=== PATIENT | female | born 1970 | race Caucasian/White ===

== ENCOUNTER 2021-10-25 23:55 | Emergency (ER) | payer MEDICARE, MEDICAID ==
[2021-10-26 00:25] LABS: #Basophils 0.1 10x3/uL (0.0-0.2); #Eosinphils 0.3 10x3/uL (0.0-0.5); #Monocytes 0.8 10x3/uL (0.0-1.1); #Neutrophils 7.7 10x3/uL (1.5-8.4); %Basophils 0.8 % (0.0-2.0); %Eosinophils 2.8 % (0.0-6.0); %Lymphocytes 18.9 % (18.0-47.0); %Monocytes 7.5 % (0.0-10.0); %Neutrophils 69.5 % (40.0-75.0); Mean Corpuscular HGB CONC 29.4 g/dL (32.0-36.0); Mean Corpuscular Hemoglobin 27.4 pg (27.0-33.0); Mean Corpuscular Volume 93.1 fl (81.6-98.3); Mean Platelet Volume 11.9 fl (7.4-10.4); Platelet Count 192 10x3/uL (150-450); RBC Distribution Width 15.8 % (11.5-14.5); Red Blood Cell (RBC) Count 4.75 10x6/uL (3.90-5.03); White Blood Cell (WBC) Count 11.1 10x3/uL (3.5-10.5)
[2021-10-26 00:33] LABS: ALT (SGPT) 38 U/L (8-55); AST (SGOT) 26 U/L (5-34); Albumin 3.4 g/dL (3.5-5.0); Alkaline Phosphatase 108 U/L (40-110); Anion Gap 13 mmol/L (10-20); BUN (Urea Nitrogen) 14 mg/dL (7.0-18.7); Bilirubin, Total 0.4 mg/dL (0.2-1.2); CK (CPK) 27 U/L (29-168); Calc. Creatinine Clearance 0 mL/min (70-130); Calcium 9.3 mg/dL (7.8-10.44); Carbon Dioxide 25 mmol/L (22-29); Chloride 106 mmol/L (98-107); Estimated GFR 85; Globulin 4.6 g/dL (2.4-3.5); Glucose 157 mg/dL (70-105); Sodium 140 mmol/L (136-145)
== END 2021-10-26 02:44 | disposition home or self-care (01) ==
LOC: CSHERS 23:55
DX: J81.1 Chronic pulmonary edema (principal); I11.0 Hypertensive heart disease with heart failure; I50.9 Heart failure, unspecified; Z87.891 Personal history of nicotine dependence
CPT/HCPCS: 71045; 80053; 82550; 83880; 84484; 85025; 93005

== ENCOUNTER 2022-04-08 14:22 | Emergency (ER) | payer MEDICARE, OTHER ==
[2022-04-08 15:51] LABS: ALT (SGPT) 20 U/L (8-55); AST (SGOT) 20 U/L (5-34); Albumin 3.6 g/dL (3.5-5.0); Alkaline Phosphatase 89 U/L (40-110); Anion Gap 12 mmol/L (10-20); BUN (Urea Nitrogen) 16 mg/dL (7.0-18.7); Bilirubin, Total 0.3 mg/dL (0.2-1.2); Calc. Creatinine Clearance 0 mL/min (70-130); Calcium 9.3 mg/dL (7.8-10.44); Carbon Dioxide 27 mmol/L (22-29); Chloride 104 mmol/L (98-107); Estimated GFR 83; Glucose 105 mg/dL (70-105); Potassium 3.9 mmol/L (3.5-5.1); Protein, Total 8.6 g/dL (6.0-8.3); Sodium 139 mmol/L (136-145)
[2022-04-08 17:17] LABS: #Basophils 0.1 10x3/uL (0.0-0.2); #Eosinphils 0.5 10x3/uL (0.0-0.5); #Monocytes 0.5 10x3/uL (0.0-1.1); #Neutrophils 3.9 10x3/uL (1.5-8.4); %Eosinophils 6.9 % (0.0-6.0); %Lymphocytes 26.8 % (18.0-47.0); %Monocytes 7.9 % (0.0-10.0); Hemoglobin 13.7 g/dL (12.0-15.5); Mean Corpuscular HGB CONC 30.6 g/dL (32.0-36.0); Mean Corpuscular Volume 91.2 fl (81.6-98.3); Mean Platelet Volume 12.5 fl (7.4-10.4); Platelet Count 201 10x3/uL (150-450); RBC Distribution Width 15.7 % (11.5-14.5); White Blood Cell (WBC) Count 6.8 10x3/uL (3.5-10.5)
[2022-04-08 17:36] LABS: SARS-CoV-2 NAA Rapid Test Not Detected (NotDetected)
== END 2022-04-08 20:00 | disposition home or self-care (01) ==
LOC: CSHERS 14:22
DX: J18.9 Pneumonia, unspecified organism (principal); Z20.822 Contact with and (suspected) exposure to COVID-19; I11.0 Hypertensive heart disease with heart failure; I50.9 Heart failure, unspecified; Z79.899 Other long term (current) drug therapy; Z87.891 Personal history of nicotine dependence; Z79.82 Long term (current) use of aspirin
CPT/HCPCS: 0240U; 71045; 80053; 83880; 84484; 85025; 93005; 36415

== ENCOUNTER 2022-10-26 17:44 | Emergency (ER) | payer MEDICARE, OTHER ==
[2022-10-26] MEDS ORDERED: cefTRIAXone (ROCEPHIN) 2 GM VIAL ONE (18:58)
[2022-10-26 19:30] LABS: ALT (SGPT) 13 U/L (8-55); AST (SGOT) 19 U/L (5-34); Albumin 3.5 g/dL (3.5-5.0); Alkaline Phosphatase 93 U/L (40-110); Anion Gap 16 mmol/L (10-20); BUN (Urea Nitrogen) 13 mg/dL (9.8-20.1); Bilirubin, Total 0.4 mg/dL (0.2-1.2); Calc. Creatinine Clearance 0 mL/min (70-130); Calcium 9.1 mg/dL (7.8-10.44); Carbon Dioxide 25 mmol/L (22-29); Chloride 101 mmol/L (98-107); Estimated GFR 73; Glucose 83 mg/dL (70-105); Potassium 3.9 mmol/L (3.5-5.1); Protein, Total 9.5 g/dL (6.0-8.3); Sodium 138 mmol/L (136-145)
[2022-10-26 19:38] LABS: #Basophils 0.1 10x3/uL (0.0-0.2); #Eosinphils 1.7 10x3/uL (0.0-0.5); #Monocytes 1.1 10x3/uL (0.0-1.1); #Neutrophils 7.5 10x3/uL (1.5-8.4); %Basophils 0.8 % (0.0-2.0); %Monocytes 8.4 % (0.0-10.0); %Neutrophils 59.5 % (40.0-75.0); Hematocrit 46.8 % (34.9-44.5); Hemoglobin 14.3 g/dL (12.0-15.5); Mean Corpuscular HGB CONC 30.6 g/dL (32.0-36.0); Mean Corpuscular Hemoglobin 27.6 pg (27.0-33.0); Mean Corpuscular Volume 90.2 fl (81.6-98.3); Mean Platelet Volume 11.1 fl (7.4-10.4); Platelet Count 291 10x3/uL (150-450); RBC Distribution Width 14.5 % (11.5-14.5); Red Blood Cell (RBC) Count 5.19 10x6/uL (3.90-5.03); White Blood Cell (WBC) Count 12.7 10x3/uL (3.5-10.5)
[2022-10-26 20:43] LABS: Bilirubin Neg (Negative); Blood, Urine 25 (Negative); Clarity Clear (Clear); Glucose, Urine (Dipstick) Normal (Negative); Ketone, Urine Negative (Negative); Leukocyte Negative (Negative); Nitrite Negative (Negative); Protein, Urine (Dipstick) Negative (Neg-Trace); Specific Gravity, Urine 1.015 (1.005-1.030)
[2022-10-26 20:56] LABS: Bacteria/HPF None Seen HPF (None Seen); CAUTI Indications for Culture Dysuria,urgency,freq; RBC/HPF 0-3 HPF (0-3); Squamous Epithelial None Seen HPF (0-3); WBC/HPF None Seen HPF (0-3)
[2022-10-26 20:57] LABS: Urine Culture Reflex No No
[2022-10-26] MEDS ORDERED: Morphine 4 MG/ML VIAL ONE (22:10)
== END 2022-10-26 22:57 | disposition short-term general hospital (02) ==
LOC: CSHERS 17:44
DX: L89.156 Pressure-induced deep tissue damage of sacral region (principal); I11.0 Hypertensive heart disease with heart failure; I50.9 Heart failure, unspecified; Z87.891 Personal history of nicotine dependence
CPT/HCPCS: 36415; 80053; 81001; 83605; 85025; 87040; 87077; 87149; J0696; J2270

== ENCOUNTER 2023-01-24 16:00 | Inpatient (IN) | payer MEDICARE, MEDICAID ==
[2023-01-24] MEDS ORDERED: HYDROmorphone 0.5 MG/0.5 ML SYRINGE ONE (18:34)
[2023-01-24 18:42] LABS: #Basophils 0.2 10x3/uL (0.0-0.2); #Eosinphils 4.2 10x3/uL (0.0-0.5); #Neutrophils 8.2 10x3/uL (1.5-8.4); %Basophils 1.2 % (0.0-2.0); %Lymphocytes 16.2 % (18.0-47.0); %Monocytes 5.9 % (0.0-10.0); %Neutrophils 50.3 % (40.0-75.0); Hematocrit 42.6 % (34.9-44.5); Hemoglobin 13.1 g/dL (12.0-15.5); Mean Corpuscular HGB CONC 30.8 g/dL (32.0-36.0); Mean Corpuscular Hemoglobin 27.5 pg (27.0-33.0); Mean Corpuscular Volume 89.5 fl (81.6-98.3); Platelet Count 303 10x3/uL (150-450); RBC Distribution Width 14.6 % (11.5-14.5); Red Blood Cell (RBC) Count 4.76 10x6/uL (3.90-5.03); White Blood Cell (WBC) Count 16.2 10x3/uL (3.5-10.5)
[2023-01-24 18:51] LABS: ALT (SGPT) 16 U/L (8-55); AST (SGOT) 23 U/L (5-34); Albumin 3.4 g/dL (3.5-5.0); Alkaline Phosphatase 104 U/L (40-110); Anion Gap 13 mmol/L (10-20); BUN (Urea Nitrogen) 18 mg/dL (9.8-20.1); Bilirubin, Total 0.2 mg/dL (0.2-1.2); Calc. Creatinine Clearance 0 mL/min (70-130); Calcium 9.8 mg/dL (7.8-10.44); Carbon Dioxide 26 mmol/L (22-29); Chloride 105 mmol/L (98-107); Estimated GFR 83; Globulin 5.6 g/dL (2.4-3.5); Glucose 103 mg/dL (70-105); Potassium 3.9 mmol/L (3.5-5.1); Sodium 140 mmol/L (136-145)
[2023-01-24] MEDS ORDERED: Vancomycin 1 GM VIAL ONE (19:09)
[2023-01-24] MEDS ORDERED: metroNIDAZOLE 500 MG/100 ML BAG ONE (19:10)
[2023-01-24] MEDS ORDERED: Piperacillin/Tazobactam 4.5 GM VIAL ONE (19:18)
[2023-01-24 19:25] LABS: Large Platelets SLIGHT (None Seen); Platelet Adequacy Comment Appears Adequate; RBC Morph Comment Within Normal Limits
[2023-01-24] MEDS ORDERED: VANCOMYCIN 2 GRAM/400 ML BAG 2 GM in Premix 1 BAG IVPB SCH (20:00)
[2023-01-24] MEDS ORDERED: Calcium Carbonate 500 MG ChewTAB PO PRN (21:17)
[2023-01-24] MEDS ORDERED: HYDROcodone/Acetaminophen 5/325 mg Tablet PO PRN (21:17)
[2023-01-24] MEDS ORDERED: Ondansetron PF 4 MG/2 ML Vial IVP PRN (21:17)
[2023-01-24] MEDS ORDERED: Acetaminophen 325 MG TAB PO PRN (21:17)
[2023-01-24] MEDS ORDERED: Senokot S 8.6-50 MG TAB PO PRN (21:17)
[2023-01-24] MEDS ORDERED: Nystatin Powder 15 GM BOT TOP PRN (21:23)
[2023-01-24] MEDS ORDERED: Docusate 100 MG CAP PO PRN (21:23)
[2023-01-24] MEDS ORDERED: clonazePAM 0.5 MG TAB PO PRN (21:23)
[2023-01-24 22:21] VITALS: BMI 62.7
[2023-01-24] MEDS ORDERED: Morphine 2 MG/ML VIAL SLOW IVP PRN (22:27)
[2023-01-24] MEDS ORDERED: Lactated Ringer's 1,000 ML IV SCH (23:00)
[2023-01-25] MEDS: Morphine 4 MG/ML VIAL SLOW IVP PRN ×4 (01:39→18:44)
[2023-01-25] MEDS: metroNIDAZOLE 500 MG in Premix 1 BAG IVPB SCH ×2 (04:17→14:13)
[2023-01-25 04:39] LABS: Bilirubin Neg (Negative); Blood, Urine 25 (Negative); Clarity Clear (Clear); Glucose, Urine (Dipstick) Normal (Negative); Ketone, Urine 5 mg/dL (Negative); Leukocyte 25 (Negative); Nitrite Negative (Negative); Protein, Urine (Dipstick) 30 mg/dl (Neg-Trace)
[2023-01-25 04:48] LABS: Bacteria/HPF Rare-Few HPF (None Seen); RBC/HPF 0-3 HPF (0-3); Squamous Epithelial 0-3 HPF (0-3); WBC/HPF 0-3 HPF (0-3)
[2023-01-25 04:49] LABS: Calcium Oxalate Crystals Rare HPF (None Seen)
[2023-01-25] MEDS: Levothyroxine Sodium 50 MCG TAB PO SCH (05:42)
[2023-01-25 05:59] LABS: Hematocrit 43.6 % (34.9-44.5); Hemoglobin 12.9 g/dL (12.0-15.5); Mean Corpuscular HGB CONC 29.6 g/dL (32.0-36.0); Mean Corpuscular Hemoglobin 27.1 pg (27.0-33.0); Mean Corpuscular Volume 91.6 fl (81.6-98.3); Mean Platelet Volume 11.5 fl (7.4-10.4); Platelet Count 279 10x3/uL (150-450); RBC Distribution Width 14.7 % (11.5-14.5); Red Blood Cell (RBC) Count 4.76 10x6/uL (3.90-5.03); White Blood Cell (WBC) Count 14.8 10x3/uL (3.5-10.5)
[2023-01-25 06:52] LABS: Eosinophils 18 % (0-10); Lymphocytes 17 % (21-51); Monocytes 5 % (0-10)
[2023-01-25 06:53] LABS: MDiff Complete? YES; Neutrophil 60 % (42-75); RBC Morph Comment Within Normal Limits
[2023-01-25 06:54] LABS: Platelet Adequacy Comment Appears Adequate
[2023-01-25 07:43] LABS: Anion Gap 16 mmol/L (10-20); BUN (Urea Nitrogen) 18 mg/dL (9.8-20.1); Calc. Creatinine Clearance 252 mL/min (70-130); Calcium 9.8 mg/dL (7.8-10.44); Carbon Dioxide 22 mmol/L (22-29); Chloride 104 mmol/L (98-107); Estimated GFR 83; Glucose 98 mg/dL (70-105); Potassium 4.2 mmol/L (3.5-5.1); Sodium 138 mmol/L (136-145)
[2023-01-25] MEDS: Cefepime 2 GM in Sodium Chloride 0.9% 100 ML IVPB SCH (09:25)
[2023-01-25] MEDS: FLUoxetine HCl 20 MG CAP PO SCH (10:28)
[2023-01-25] MEDS: Aspirin 81 mg Enteric Coated Tablet PO SCH (10:29)
[2023-01-25] MEDS: Furosemide 20 MG TAB PO SCH (10:29)
[2023-01-25] MEDS: BuPROPion 100 MG SR.TAB PO SCH (10:29)
[2023-01-25] MEDS: Famotidine 20 MG TAB PO SCH ×2 (10:29→22:39)
[2023-01-25] MEDS: Polyethylene Glycol 3350 17 GM Packet PO SCH (10:30)
[2023-01-25] MEDS: Multivit, Therapeutic 1 TAB PO SCH (10:31)
[2023-01-25] MEDS: Divalproex Sodium 250 MG (DR) TAB PO SCH ×3 (10:33→22:40)
[2023-01-25] MEDS: Aripiprazole 10 MG TAB PO SCH (10:34)
[2023-01-25] MEDS: Topiramate 25 MG TAB PO SCH ×2 (10:35→22:40)
[2023-01-25] MEDS: VANCOMYCIN 1.5 GM, Admixture Fee 1 EACH in Sodium Chloride 0.9% 500 ML IVPB SCH (10:36)
[2023-01-25 12:44] LABS: Hemoglobin A1c 5.3 % (4.0-6.0)
[2023-01-25] MEDS: Melatonin 3 MG TAB PO SCH (22:39)
[2023-01-25] MEDS: Potassium Chloride 8 MEQ TAB PO SCH (22:40)
[2023-01-26] MEDS: Morphine 4 MG/ML VIAL SLOW IVP PRN ×4 (00:19→23:12)
[2023-01-26] MEDS: VANCOMYCIN 1.5 GM, Admixture Fee 1 EACH in Sodium Chloride 0.9% 500 ML IVPB SCH ×3 (00:37→13:13)
[2023-01-26] MEDS: Cefepime 2 GM in Sodium Chloride 0.9% 100 ML IVPB SCH ×3 (00:46→14:21)
[2023-01-26] MEDS: metroNIDAZOLE 500 MG in Premix 1 BAG IVPB SCH ×4 (00:46→17:50)
[2023-01-26] MEDS: Levothyroxine Sodium 50 MCG TAB PO SCH (05:52)
[2023-01-26] MEDS: Polyethylene Glycol 3350 17 GM Packet PO SCH (08:29)
[2023-01-26] MEDS: Aspirin 81 mg Enteric Coated Tablet PO SCH (08:34)
[2023-01-26] MEDS: Multivit, Therapeutic 1 TAB PO SCH (08:35)
[2023-01-26] MEDS: FLUoxetine HCl 20 MG CAP PO SCH (08:35)
[2023-01-26] MEDS: BuPROPion 100 MG SR.TAB PO SCH (08:35)
[2023-01-26] MEDS: Famotidine 20 MG TAB PO SCH ×2 (08:35→21:46)
[2023-01-26] MEDS: Furosemide 20 MG TAB PO SCH (08:35)
[2023-01-26] MEDS: Aripiprazole 10 MG TAB PO SCH (08:36)
[2023-01-26] MEDS: Divalproex Sodium 250 MG (DR) TAB PO SCH ×3 (08:36→21:48)
[2023-01-26] MEDS: Topiramate 25 MG TAB PO SCH ×2 (08:37→21:48)
[2023-01-26] MEDS: Potassium Chloride 8 MEQ TAB PO SCH ×2 (08:37→21:47)
[2023-01-26] MEDS: Melatonin 3 MG TAB PO SCH (21:46)
[2023-01-27 00:24] LABS: Vancomycin, Trough 23.4 ug/mL
[2023-01-27] MEDS: VANCOMYCIN 1.5 GM, Admixture Fee 1 EACH in Sodium Chloride 0.9% 500 ML IVPB SCH (00:33)
[2023-01-27] MEDS: Cefepime 2 GM in Sodium Chloride 0.9% 100 ML IVPB SCH ×2 (01:49→18:52)
[2023-01-27] MEDS: metroNIDAZOLE 500 MG in Premix 1 BAG IVPB SCH ×2 (02:40→08:55)
[2023-01-27] MEDS: Levothyroxine Sodium 50 MCG TAB PO SCH (05:10)
[2023-01-27] MEDS: BuPROPion 100 MG SR.TAB PO SCH (08:43)
[2023-01-27] MEDS: Multivit, Therapeutic 1 TAB PO SCH (08:43)
[2023-01-27] MEDS: Divalproex Sodium 250 MG (DR) TAB PO SCH ×3 (08:43→21:21)
[2023-01-27] MEDS: Polyethylene Glycol 3350 17 GM Packet PO SCH (08:43)
[2023-01-27] MEDS: Aripiprazole 10 MG TAB PO SCH (08:44)
[2023-01-27] MEDS: Aspirin 81 mg Enteric Coated Tablet PO SCH (08:44)
[2023-01-27] MEDS: Famotidine 20 MG TAB PO SCH (08:45)
[2023-01-27] MEDS: Furosemide 20 MG TAB PO SCH (08:45)
[2023-01-27] MEDS: FLUoxetine HCl 20 MG CAP PO SCH (08:45)
[2023-01-27] MEDS: Topiramate 25 MG TAB PO SCH ×2 (08:46→21:22)
[2023-01-27] MEDS: Potassium Chloride 8 MEQ TAB PO SCH ×2 (08:46→21:21)
[2023-01-27] MEDS ORDERED: HYDROcodone/Acetaminophen 5/325 mg Tablet PO PRN (12:32)
[2023-01-27] MEDS ORDERED: Morphine 2 MG/ML VIAL SLOW IVP PRN (12:34)
[2023-01-27] MEDS ORDERED: Morphine 4 MG/ML VIAL SLOW IVP PRN (12:34)
[2023-01-27] MEDS ORDERED: Polyethylene Glycol 3350 17 GM Packet PO PRN (12:37)
[2023-01-27] MEDS ORDERED: VANCOMYCIN 1.5 GM, Admixture Fee 1 EACH in Sodium Chloride 0.9% 500 ML IVPB SCH (18:00)
[2023-01-27] MEDS: Amoxicillin/Potassium Clav 875 MG TAB PO SCH (21:21)
[2023-01-27] MEDS: Melatonin 3 MG TAB PO SCH (21:21)
[2023-01-28] MEDS: LevoFLOXacin 750 MG TAB PO SCH (05:44)
[2023-01-28] MEDS: Levothyroxine Sodium 50 MCG TAB PO SCH (05:44)
[2023-01-28 08:41] LABS: Hematocrit 40.9 % (34.9-44.5); Hemoglobin 12.4 g/dL (12.0-15.5); MDiff Complete? YES; Mean Corpuscular HGB CONC 30.3 g/dL (32.0-36.0); Mean Corpuscular Hemoglobin 27.4 pg (27.0-33.0); Mean Corpuscular Volume 90.3 fl (81.6-98.3); Platelet Count 223 10x3/uL (150-450); RBC Distribution Width 14.5 % (11.5-14.5); Red Blood Cell (RBC) Count 4.53 10x6/uL (3.90-5.03); White Blood Cell (WBC) Count 11.7 10x3/uL (3.5-10.5)
[2023-01-28] MEDS: Amoxicillin/Potassium Clav 875 MG TAB PO SCH ×2 (08:45→21:40)
[2023-01-28] MEDS: Furosemide 20 MG TAB PO SCH (08:46)
[2023-01-28] MEDS: Pioglitazone HCl 15 MG TAB PO SCH (08:46)
[2023-01-28] MEDS: Aspirin 81 mg Enteric Coated Tablet PO SCH (08:46)
[2023-01-28] MEDS: Multivit, Therapeutic 1 TAB PO SCH (08:46)
[2023-01-28] MEDS: BuPROPion 100 MG SR.TAB PO SCH (08:46)
[2023-01-28] MEDS: FLUoxetine HCl 20 MG CAP PO SCH (08:46)
[2023-01-28] MEDS: Topiramate 25 MG TAB PO SCH ×2 (08:47→21:41)
[2023-01-28] MEDS: Polyethylene Glycol 3350 17 GM Packet PO SCH (08:47)
[2023-01-28] MEDS: Divalproex Sodium 250 MG (DR) TAB PO SCH ×3 (08:47→21:40)
[2023-01-28] MEDS: Aripiprazole 10 MG TAB PO SCH (08:47)
[2023-01-28] MEDS: Potassium Chloride 8 MEQ TAB PO SCH ×2 (08:47→21:40)
[2023-01-28 09:17] LABS: Eosinophils 30 % (0-10); Lymphocytes 26 % (21-51); Monocytes 3 % (0-10); Neutrophil 40 % (42-75)
[2023-01-28 09:22] LABS: Platelet Adequacy Comment Appears Adequate; Stomatocytes SLIGHT = 2-5 cells (100X) (0-1/hpf)
[2023-01-28 09:58] LABS: Anion Gap 11 mmol/L (10-20); BUN (Urea Nitrogen) 8 mg/dL (9.8-20.1); Calc. Creatinine Clearance 311 mL/min (70-130); Calcium 9.2 mg/dL (7.8-10.44); Carbon Dioxide 25 mmol/L (22-29); Chloride 104 mmol/L (98-107); Estimated GFR 105; Glucose 86 mg/dL (70-105); Potassium 3.3 mmol/L (3.5-5.1); Sodium 137 mmol/L (136-145)
[2023-01-28] MEDS ORDERED: Naloxone HCl 0.4 mg/ml Vial IV PRN (10:04)
[2023-01-28] MEDS: Ketorolac Tromethamine 30 MG/ML VIAL IVP SCH ×2 (11:37→18:20)
[2023-01-28] MEDS ORDERED: Lidocaine 1% w/Epinephrine 1:100K 20 ML VIAL FS SCH (12:00)
[2023-01-28] MEDS: traMADol HCl 50 MG TAB PO PRN (15:57)
[2023-01-28] MEDS: Melatonin 3 MG TAB PO SCH (21:39)
[2023-01-29] MEDS: Ketorolac Tromethamine 30 MG/ML VIAL IVP SCH ×4 (00:24→18:07)
[2023-01-29 05:23] LABS: Anion Gap 11 mmol/L (10-20); BUN (Urea Nitrogen) 8 mg/dL (9.8-20.1); Calc. Creatinine Clearance 306 mL/min (70-130); Calcium 9.1 mg/dL (7.8-10.44); Carbon Dioxide 27 mmol/L (22-29); Chloride 103 mmol/L (98-107); Estimated GFR 105; Glucose 103 mg/dL (70-105); Hematocrit 38.7 % (34.9-44.5); Hemoglobin 11.6 g/dL (12.0-15.5); Mean Corpuscular Hemoglobin 26.4 pg (27.0-33.0); Mean Corpuscular Volume 88.2 fl (81.6-98.3); Mean Platelet Volume 11.9 fl (7.4-10.4); Platelet Count 227 10x3/uL (150-450); Potassium 3.4 mmol/L (3.5-5.1); RBC Distribution Width 14.6 % (11.5-14.5); Red Blood Cell (RBC) Count 4.39 10x6/uL (3.90-5.03); Sodium 138 mmol/L (136-145); White Blood Cell (WBC) Count 11.1 10x3/uL (3.5-10.5)
[2023-01-29 05:27] LABS: MDiff Complete? YES
[2023-01-29] MEDS: LevoFLOXacin 750 MG TAB PO SCH (05:29)
[2023-01-29] MEDS: Levothyroxine Sodium 50 MCG TAB PO SCH (05:29)
[2023-01-29 07:10] LABS: Platelet Adequacy Comment Appears Adequate
[2023-01-29 07:11] LABS: Stomatocytes SLIGHT = 2-5 cells (100X) (0-1/hpf)
[2023-01-29 07:13] LABS: Band 4 % (5-11); Eosinophils 25 % (0-10); Lymphocytes 24 % (21-51); Monocytes 6 % (0-10); Neutrophil 41 % (42-75)
[2023-01-29] MEDS: Aripiprazole 10 MG TAB PO SCH (09:00)
[2023-01-29] MEDS: Potassium Chloride 8 MEQ TAB PO SCH ×2 (09:00→22:24)
[2023-01-29] MEDS: Multivit, Therapeutic 1 TAB PO SCH (09:00)
[2023-01-29] MEDS: Divalproex Sodium 250 MG (DR) TAB PO SCH ×3 (09:01→22:22)
[2023-01-29] MEDS: FLUoxetine HCl 20 MG CAP PO SCH (09:01)
[2023-01-29] MEDS: Amoxicillin/Potassium Clav 875 MG TAB PO SCH ×2 (09:01→22:24)
[2023-01-29] MEDS: BuPROPion 100 MG SR.TAB PO SCH (09:01)
[2023-01-29] MEDS: Furosemide 20 MG TAB PO SCH (09:01)
[2023-01-29] MEDS: Aspirin 81 mg Enteric Coated Tablet PO SCH (09:02)
[2023-01-29] MEDS: Pioglitazone HCl 15 MG TAB PO SCH (09:02)
[2023-01-29] MEDS: Topiramate 25 MG TAB PO SCH ×2 (09:02→22:24)
[2023-01-29] MEDS: Polyethylene Glycol 3350 17 GM Packet PO SCH (09:06)
[2023-01-29] MEDS: traMADol HCl 50 MG TAB PO PRN ×2 (12:15→22:22)
[2023-01-29] MEDS: Melatonin 3 MG TAB PO SCH (22:22)
[2023-01-30] MEDS: Ketorolac Tromethamine 30 MG/ML VIAL IVP SCH ×3 (00:53→13:34)
[2023-01-30] MEDS: Levothyroxine Sodium 50 MCG TAB PO SCH (06:00)
[2023-01-30] MEDS: LevoFLOXacin 750 MG TAB PO SCH (06:00)
[2023-01-30] MEDS: Amoxicillin/Potassium Clav 875 MG TAB PO SCH (09:22)
[2023-01-30] MEDS: Aspirin 81 mg Enteric Coated Tablet PO SCH (09:22)
[2023-01-30] MEDS: Aripiprazole 10 MG TAB PO SCH (09:22)
[2023-01-30] MEDS: Multivit, Therapeutic 1 TAB PO SCH (09:22)
[2023-01-30] MEDS: BuPROPion 100 MG SR.TAB PO SCH (09:22)
[2023-01-30] MEDS: FLUoxetine HCl 20 MG CAP PO SCH (09:22)
[2023-01-30] MEDS: Pioglitazone HCl 15 MG TAB PO SCH (09:22)
[2023-01-30] MEDS: Furosemide 20 MG TAB PO SCH (09:22)
[2023-01-30] MEDS: Potassium Chloride 8 MEQ TAB PO SCH (09:23)
[2023-01-30] MEDS: Divalproex Sodium 250 MG (DR) TAB PO SCH (09:23)
[2023-01-30] MEDS: Topiramate 25 MG TAB PO SCH (09:23)
[2023-01-30] MEDS: Polyethylene Glycol 3350 17 GM Packet PO SCH (09:24)
[2023-01-30 12:42] VITALS: BP 119/58; TEMP 98
== END 2023-01-30 14:03 | DRG 593 ==
LOC: CSHERS 16:00 → CSHTELE 21:16
PROVIDERS: ADMIT Student in an Organized Health Care Education/Training Program; ATTEND Family Medicine
PROC: 0JBB0ZX Excision of Perineum Subcutaneous Tissue and Fascia, Open Approach, Diagnostic (ICD-10-PCS; principal; 2023-01-28)
PROC: 5A09357 Assistance with Respiratory Ventilation, Less than 24 Consecutive Hours, Continuous Positive Airway Pressure (ICD-10-PCS; 2023-01-28)
DX: L89.153 Pressure ulcer of sacral region, stage 3 (principal); E11.52 Type 2 diabetes mellitus with diabetic peripheral angiopathy with gangrene; K61.0 Anal abscess; Z68.44 Body mass index [BMI] 60.0-69.9, adult; I50.9 Heart failure, unspecified; Z66 Do not resuscitate; K21.9 Gastro-esophageal reflux disease without esophagitis; Z90.89 Acquired absence of other organs; Z98.890 Other specified postprocedural states; Z90.49 Acquired absence of other specified parts of digestive tract; F41.9 Anxiety disorder, unspecified; F31.9 Bipolar disorder, unspecified; Z87.891 Personal history of nicotine dependence; I11.0 Hypertensive heart disease with heart failure; D72.10 Eosinophilia, unspecified; Z79.899 Other long term (current) drug therapy; E66.01 Morbid (severe) obesity due to excess calories; E03.9 Hypothyroidism, unspecified
CPT/HCPCS: 36415; 36416; 80048; 80053; 80202; 81001; 83036; 83605; 84145; 85025; 86140; 87040; 88305; 93970; 94660; 94760; 94762; 96374; 96375; 97139; J0692; J1170; J1650; J1885; J2270; J2272; J2543; J3370; J3490; J7030; J7120

== ENCOUNTER 2023-02-14 09:14 | Outpatient (CLI) | payer MEDICARE, MEDICAID | END 2023-02-14 09:15 | disposition home or self-care (01) | LOC: CSHWCC 09:14 | PROVIDERS: ATTEND Physician Assistant | DX: E11.622 Type 2 diabetes mellitus with other skin ulcer (principal); L98.499 Non-pressure chronic ulcer of skin of other sites with unspecified severity; E66.01 Morbid (severe) obesity due to excess calories; C44.520 Squamous cell carcinoma of anal skin | CPT/HCPCS: 99214; G0463 ==